=== PATIENT | female | born 1955 ===

== ENCOUNTER → 2017-08-21 | Day surgery (SDC) | payer OTHER ==
[2017-08-19 07:42] VITALS: BMI 32.1
[~2017-08-21] MED LIST: Iodixanol 320 MG/ML 200 ML BOTTLE IV ONE; Lidocaine 2% Inj (20ml) ONE; Midazolam 2 MG/2 ML VIAL ONE; Phenylephrine 10 mg/ml Inj ONE; Propofol 10 mg/ml Inj (20 ML) ONE; ePHEDrine 50 mg/ml Inj ONE
--- NOTE | 2017-08-21 12:09 | CP.SDSHP ---
Same Day Surgery H & P - History Proposed Procedure: Port revision Pre-Op Diagnosis: Breast cancer - Allergies Allergies: Allergies No Known Allergies Allergy (Verified 03/09/16 15:40) - Physical Exam Mental Status: Alert & Oriented x3 Neuro: WNL Heart: WNL - Impression Impression: Pt with malpositioned right IJ Port. Plan port revision. Pt. Evaluated Today:Candidate for Anesthesia & Procedure: Yes - Date & Time Date: 08/21/17 Time: 11:20 Short Stay Discharge - Short Stay Discharge Admitting Diagnosis/Reason for Visit: MALIGNANT NEOPLASM OF UNSP SITE OF FEMALE BR Disposition: HOME/ ROUTINE
--- NOTE | 2017-08-21 12:11 | PCM.SURG1 ---
Surgeon's Initial Post Op Note - Surgeon's Notes Surgeon: James HERRING md Airways Control Specialist: none Type of Anesthesia: Local Pre-Operative Diagnosis: Breast cancer Operative Findings: CXR showed port catheter in neck. Post-Operative Diagnosis: Breast cancer Operation Performed: Removal of right chest port. Placement of a new port. Specimen/Specimens Removed: Existing port Estimated Blood Loss: EBL {In ML}: 5 Blood Products Given: N/A Drains Used: No Drains Post-Op Condition: Fair Date of Surgery/Procedure: 08/21/17 Time of Surgery/Procedure: 12:00
== END | disposition home or self-care (01) ==
LOC: C.CATHLAB 09:20
PROVIDERS: ATTEND Radiology Vascular & Interventional Radiology
DX: T82.898A Other specified complication of vascular prosthetic devices, implants and grafts, initial encounter (principal); Y83.8 Other surgical procedures as the cause of abnormal reaction of the patient, or of later complication, without mention of misadventure at the time of the procedure; C50.919 Malignant neoplasm of unspecified site of unspecified female breast
CPT/HCPCS: 36561; 36590; J1644; J2250; J2370; J2704; J3010; Q9966

== ENCOUNTER 2017-09-08 09:30 | Emergency (ER) | payer OTHER ==
[2017-09-08 09:31] VITALS: BMI 31.8
[2017-09-08 09:42] VITALS: RESP 20; O2SAT 96
--- NOTE | 2017-09-08 10:40 | C.PDOC ---
History Of Present Illness 62 yr old female with PMHx of breast cancer, presents to the ER with complaints of pain to the area around port-a-cath for the past 4 days. Patient reports the port-a-cath was placed on August [address] Mitchell. Patient reports of tenderness and pain to the site with movement and touch. States last chemo was August 28. Denies taking any medications for the pain, fever, chills, chest pain, SOB, nausea, vomiting, weakness or numbness. Time Seen by Provider: 09/08/17 10:16 Chief Complaint (Nursing): Vascular Access Device Problem History Per: Patient History/Exam Limitations: no limitations Onset/Duration Of Symptoms: Days (4) Past Medical History Reviewed: Historical Data, Nursing Documentation, Vital Signs Vital Signs: Last Vital Signs Temp 99.9 F H 09/08/17 09:39 Pulse 123 H 09/08/17 09:39 Resp 20 09/08/17 09:39 BP 120/88 09/08/17 09:39 Pulse Ox 96 09/08/17 13:06 - Medical History PMH: Hyperlipidemia, Hyperthyroidism, Hypothyroidism Surgical History: Appendectomy - [facility] Procedures EXCISION OF LEFT AXILLARY LYMPHATIC, OPEN APPROACH (04/22/17) RESECTION OF LEFT BREAST, OPEN APPROACH (04/22/17) Family History: States: No Known Family Hx - Social History Hx Alcohol Use: No Hx Substance Use: No - Immunization History Hx Tetanus Toxoid Vaccination: No Hx Influenza Vaccination: No Hx Pneumococcal Vaccination: No Review Of Systems Except As Marked, All Systems Reviewed And Found Negative. Constitutional: Negative for: Fever, Chills Cardiovascular: Negative for: Chest Pain Respiratory: Negative for: Shortness of Breath Gastrointestinal: Negative for: Nausea, Vomiting Neurological: Negative for: Weakness, Numbness Physical Exam - Physical Exam Appears: Non-toxic, No Acute Distress Skin: Warm, Dry, Other (left breast mastectomy) Eye(s): bilateral: Normal Inspection, PERRL, EOMI Oral Mucosa: Moist Chest: Symmetrical, Other (+ port-a-cath to the right anterior chest wall with tenderness, no redness, no gross swelling) Cardiovascular: Rhythm Regular, No Murmur Respiratory: Normal Breath Sounds, No Rales, No Rhonchi, No Wheezing Extremity: Normal ROM, No Swelling Neurological/Psych: Oriented x3, Normal Speech ED Course And Treatment - Laboratory Results Result Diagrams: 09/08/17 11:56 09/08/17 11:56 O2 Sat by Pulse Oximetry: 96 (RA) Pulse Ox Interpretation: Normal Medical Decision Making Medical Decision Making: IMPRESSION: Chest wall pain PLAN: * Labs NOTE: * Case discussed with Dr. Mitchell who would like blood cultures done and patient sent over to IR for further evaluation * * 1305 - patient has neutropenia, no fever. Case discussed with Dr. Mitchell who doesn't wish to see patient now and would like a set of blood cultures sent. Patient medicated with keflex. * * patient do not wish to stay in hospital and would like to go home. Repeat pulse is 92 bpm. Will discharge home and advised patient to return to ER if symptoms worsens or if she develops fever. Disposition Discussed With Dr.: James Mitchell Counseled Patient/Family Regarding: Studies Performed, Diagnosis, Need For Followup, Rx Given - Disposition Referrals: Go Martins MD [Staff Provider] - Disposition: HOME/ ROUTINE Disposition Time: 13:15 Condition: STABLE Additional Instructions: follow up with your doctor in 2 days call to make an appointment take medications as prescribed return to ER is symptoms worsens or progress Prescriptions: Cephalexin [Keflex] 500 mg PO QID #40 capsule Naproxen [Naprosyn] 500 mg PO BID PRN #16 tab PRN Reason: Pain, Moderate (4-7) Instructions: Neutropenia (DC), Portacath (DC) Forms: Gen Discharge Inst Estonian, [facility] (Estonian) Print Language: BARBADIAN - Clinical Impression Clinical Impression: Neutropenia, Port-a-cath in place - Scribe Statement The provider has reviewed the documentation as recorded by the Tiffany Reyna Provider Attestation: All medical record entries made by the Rosalbaibgwen were at my direction and personally dictated by me. I have reviewed the chart and agree that the record accurately reflects my personal performance of the history, physical exam, medical decision making, and the department course for this patient. I have also personally directed, reviewed, and agree with the discharge instructions and disposition.
[2017-09-08 12:15] LABS: EOS # 0.1 K/uL (0.0-0.7); MEAN CORPUSCULAR HEMOGLOBIN 29.1 pg (27.0-31.0); MONO # 0.2 K/uL (0.0-0.8); NEUT # 0.3 K/uL (1.8-7.0); RBC 3.91 Mil/uL (3.80-5.20)
[2017-09-08 12:24] LABS: BASO % 1.6 % (0.0-2.0); EOS % 3.6 % (0.0-4.0); LYMPH % 65.5 % (20.0-40.0); MEAN CELL VOLUME 85.6 fL (81.0-99.0); MEAN CORPUSCULAR HGB CONC 34.1 g/dL (33.0-37.0); MEAN PLATELET VOLUME 9.2 fL (7.2-11.7); MONO % 11.7 % (0.0-10.0); NEUT % 17.6 % (50.0-75.0); NRBC % 0.2 % (0.0-2.0); RED CELL DISTRIBUTION WIDTH 14.8 % (11.5-14.5)
[2017-09-08 12:26] LABS: HEMOGLOBIN 11.4 g/dL (11.0-16.0); WHITE BLOOD COUNT 1.6 K/uL (4.8-10.8)
[2017-09-08 12:27] LABS: ALB/GLOB RATIO 1.3 (1.0-2.1); ALBUMIN 3.7 g/dL (3.5-5.0); ALT/SGPT 41 U/L (9-52); AST/SGOT 22 U/L (14-36); BLOOD UREA NITROGEN 14 mg/dL (7-17); CALCIUM 8.9 mg/dl (8.6-10.4); GFR AFRICAN-AMERICAN > 60; GFR NON-AFRICAN AMERICAN > 60
[2017-09-08 14:01] VITALS: BP 126/81; PULSE 115; TEMP 99
== END 2017-09-08 13:59 | disposition home or self-care (01) ==
LOC: C.ER 09:30
DX: Z45.2 Encounter for adjustment and management of vascular access device (principal); D70.9 Neutropenia, unspecified; Z85.3 Personal history of malignant neoplasm of breast; Z87.891 Personal history of nicotine dependence

== ENCOUNTER 2018-01-18 10:13 | Emergency (ER) | payer OTHER ==
[2018-01-18 10:14] VITALS: BMI 33.1
[2018-01-18 10:25] VITALS: O2SAT 97
--- NOTE | 2018-01-18 10:33 | C.PDOC ---
History Of Present Illness 62 y/o female brought in by ambulance for complaints of bilateral foot rash, right greater than left, for the past 3-4 days. Of note patient is currently receiving chemotherapy treatment for breast cancer, and noticed the symptoms began following chemo 3 days ago. Denies trauma. Patient reports pain to 1 lesion on the right foot. Denies any other similar episodes in the past. Rash is localized to the feet. Otherwise denies associated changes in sensation, fever, chills, or drainage/streaking at the site. NEW ONSET R>L FOOT RASH X 3-4 DAYS. ONSET AFTER CHEMO FOR BREAST CA 3 DAYS AGO. NO TRAUMA. +PAIN ON 1 LESION ON R FOOT, ASYMPT ON L FOOT. DENIES OTHER SIM RASH ON BODY. OTHERWISE ASYMPT EXAM NAD NONTOXIC SKIN +DEEP RED/PURPLE MACULAR *BLANCHING LESIONS MEDIAL ASPECT R>L FEET. +FOCAL TEND ON 1 LESION R FOOT, POSSIBLE EARLY BLISTER FORMATION. POSSIBLE ERYTHEMA MULTIFORME? NO CELLULITIS, DC. INTACT EXT NO EDEMA ATRAUM REMAINDER NEG Time Seen by Provider: 01/18/18 10:30 Chief Complaint (Nursing): Lower Extremity Problem/Injury History Per: Patient History/Exam Limitations: no limitations Onset/Duration Of Symptoms: Days (x3) Current Symptoms Are (Timing): Still Present Past Medical History Reviewed: Historical Data, Nursing Documentation, Vital Signs Vital Signs: Last Vital Signs Temp 97.9 F 01/18/18 12:07 Pulse 117 H 01/18/18 12:07 Resp 20 01/18/18 12:07 BP 130/78 01/18/18 12:07 Pulse Ox 97 01/18/18 12:07 - Medical History PMH: Hyperlipidemia, Hyperthyroidism, Hypothyroidism, Malignancy (Breast CA, s/ p chemotherapy) Denies: Chronic Kidney Disease Surgical History: Appendectomy - [facility] Procedures EXCISION OF LEFT AXILLARY LYMPHATIC, OPEN APPROACH (04/22/17) RESECTION OF LEFT BREAST, OPEN APPROACH (04/22/17) Family History: States: No Known Family Hx - Social History Hx Tobacco Use: Yes (former smoker) Hx Alcohol Use: No Hx Substance Use: No - Immunization History Hx Tetanus Toxoid Vaccination: No Hx Influenza Vaccination: No Hx Pneumococcal Vaccination: No Review Of Systems Except As Marked, All Systems Reviewed And Found Negative. Constitutional: Negative for: Fever, Chills Musculoskeletal: Positive for: Foot Pain Skin: Positive for: Rash Neurological: Negative for: Weakness, Numbness Physical Exam - Physical Exam Appears: Non-toxic, No Acute Distress Skin: Dry, Rash (Deep red/purple macular blanching lesions to medial aspects of bilateral feet, right > left. +Focal tenderness to 1 lesion on right foot, possible early blister formation. Consistent w/ possible erythema multiforme. No cellulitic components or discharge. Skin intact) Head: Atraumatic, Normacephalic Eye(s): bilateral: Normal Inspection, PERRL, EOMI Oral Mucosa: Moist Neck: Normal ROM Chest: Symmetrical Respiratory: No Accessory Muscle Use, Other (NARD) Extremity: Bilateral: Atraumatic, No Pedal Edema, Normal ROM Pulses: Left Dorsalis Pedis: Normal, Right Dorsalis Pedis: Normal Neurological/Psych: Oriented x3, Normal Speech, Normal Motor, Normal Sensation ED Course And Treatment - Laboratory Results Result Diagrams: 01/18/18 11:27 O2 Sat by Pulse Oximetry: 97 (RA) Pulse Ox Interpretation: Normal - Physician Consult Information Time Consulting Physician Contacted: 11:51 Physician Contacted: Go Martins Outcome Of Conversation: AWARE OF ER FINDINGS, REFER CLINIC DERM Medical Decision Making Medical Decision Making: Time: 11:00 Initial Plan: --CBC --PTT --PT --Tylenol 650 mg PO --Motrin 600 mg PO Labs reviewed, coags are wnl. Paged Dr. Martins, patient's oncologist, to discuss case. Patient will be discharged home, advised to follow up with dermatology clinic for further evaluation. Disposition Counseled Patient/Family Regarding: Studies Performed, Diagnosis, Need For Followup - Disposition Referrals: [facility] [Outside] [facility] [Outside] Disposition: HOME/ ROUTINE Disposition Time: 11:52 Condition: GOOD Instructions: Erythema Multiforme (DC) Forms: [facility] (Mohawk) Print Language: TRINIDADIAN - POA Present On Arrival: None - Clinical Impression Clinical Impression: Erythema multiforme - Scribe Statement The provider has reviewed the documentation as recorded by the Scribe (Loan Nieto) Provider Attestation: All medical record entries made by the Scribe were at my direction and personally dictated by me. I have reviewed the chart and agree that the record accurately reflects my personal performance of the history, physical exam, medical decision making, and the department course for this patient. I have also personally directed, reviewed, and agree with the discharge instructions and disposition.
[2018-01-18 11:32] LABS: BASO % 0.9 % (0.0-2.0); EOS % 1.2 % (0.0-4.0); HEMOGLOBIN 10.8 g/dL (11.0-16.0); LYMPH # 0.7 K/uL (1.0-4.3); LYMPH % 23.3 % (20.0-40.0); MEAN CELL VOLUME 92.8 fL (81.0-99.0); MEAN CORPUSCULAR HGB CONC 34.4 g/dL (33.0-37.0); MEAN PLATELET VOLUME 8.2 fL (7.2-11.7); MONO # 0.2 K/uL (0.0-0.8); MONO % 5.6 % (0.0-10.0); NRBC % 0.1 % (0.0-2.0); RBC 3.36 Mil/uL (3.80-5.20); RED CELL DISTRIBUTION WIDTH 20.2 % (11.5-14.5)
[2018-01-18 11:39] LABS: INR 1.1; PROTHROMBIN TIME 12.1 SECONDS (9.7-12.2)
[2018-01-18 12:12] VITALS: BP 130/78; PULSE 117; RESP 20; TEMP 97.9
== END 2018-01-18 12:07 | disposition home or self-care (01) ==
LOC: C.ER 10:13
DX: L51.9 Erythema multiforme, unspecified (principal); Z87.891 Personal history of nicotine dependence; Z85.3 Personal history of malignant neoplasm of breast

== ENCOUNTER 2018-08-11 09:11 | Outpatient (CLI) | payer OTHER | END 2018-08-11 09:12 | disposition home or self-care (01) | LOC: C.LAB 09:11 | DX: E11.9 Type 2 diabetes mellitus without complications (principal); E78.2 Mixed hyperlipidemia; K76.0 Fatty (change of) liver, not elsewhere classified; Z12.11 Encounter for screening for malignant neoplasm of colon ==

== ENCOUNTER 2018-08-17 08:41 | Outpatient (CLI) | payer OTHER | END 2018-08-17 08:42 | disposition home or self-care (01) | LOC: C.MAMMO 08:41 | DX: Z12.31 Encounter for screening mammogram for malignant neoplasm of breast (principal); E11.9 Type 2 diabetes mellitus without complications; E78.2 Mixed hyperlipidemia; K76.0 Fatty (change of) liver, not elsewhere classified; Z12.11 Encounter for screening for malignant neoplasm of colon ==

== ENCOUNTER 2018-10-22 08:39 | Outpatient (CLI) | payer OTHER | END 2018-10-22 08:40 | disposition home or self-care (01) | LOC: C.LAB 08:39 | DX: E11.65 Type 2 diabetes mellitus with hyperglycemia (principal); E78.2 Mixed hyperlipidemia; K76.0 Fatty (change of) liver, not elsewhere classified ==

== ENCOUNTER 2018-11-26 08:55 | Outpatient (CLI) | payer OTHER | END 2018-11-26 08:56 | disposition home or self-care (01) | LOC: C.LAB 08:55 | DX: E78.2 Mixed hyperlipidemia (principal) ==